=== PATIENT | male | born 1995 | race Native Hawaiian/Other Pacific Islander ===

== ENCOUNTER 2022-10-19 09:34 | Emergency (ER) | payer OTHER, SELFPAY ==
[2022-10-19 09:49] VITALS: BP 139/63; PULSE 72; RESP 18; TEMP 36.6; O2SAT 98; BMI 51.5
--- NOTE | 2022-10-19 10:16 | ED_ITS ---
HPI - Back Pain/Injury General Chief Complaint: Back Pain/Injury Stated Complaint: Lower back pain Time Seen by Provider: 10/19/22 09:57 Source: patient Mode of arrival: ambulatory Limitations: no limitations History of Present Illness HPI Narrative: 27-year-old male with a history of obesity who presents to the emergency room with complaints of lower back pain for the last 1 month with no known injury or trauma. Patient denies any radiation of pain. He denies any numbness in the groin, numbness/weakness/tingling in the lower extremities, incontinence of urine or stool, fever. 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 He has tried Tylenol but continues to feel pain. Patient reports pain is worsened at night time after long days of working and is worsened when he changes positions and moves. Patient has not been seen for this pain by any other facility or by a primary care. He does not currently have any primary care physician. Patient denies any known medical history but has not seen a primary care doctor in many years. Related Data Previous Rx's Medication Instructions Recorded cyclobenzaprine 10 mg tablet 10 mg PO TID PRN muscle spasm #15 10/19/22 tabs lidocaine 5 % topical patch 1 patch topical DAILY #30 ea 10/19/22 (Lidoderm) naproxen 500 mg tablet 500 mg PO BID PRN pain #30 tabs 10/19/22 Allergies Allergy/AdvReac Type Severity Reaction Status Date / Time No Known Allergies Allergy Unverified 06/07/20 17:33 Review of Systems Review of Systems: Yes all other systems are reviewed and are negative Constitutional: Constitutional: Reports no additional constitutional complaints, Denies body ache(s), Denies chills, Denies fever(s), Denies headache(s) and Denies weakness Eyes: Eyes: Reports no additional eye complaints and Denies change in vision ENT: Reports system reviewed and no additional complaints, except as documented, Denies dizziness, Denies headache(s), Denies nasal congestion, Denies nasal discharge and Denies neck pain Cardiovascular: Cardiovascular: Reports no additional cardiovascular complaints, Denies chest pain, Denies leg edema and Denies dyspnea Respiratory: Respiratory: Reports no additional respiratory complaints, Denies cough and Denies dyspnea Gastrointestinal: Gastrointestinal: Reports no additional gastrointestinal complaints, Denies abdominal pain, Denies diarrhea, Denies nausea and Denies vomiting Genitourinary: Genitourinary: Denies urinary incontinence Musculoskeletal: Musculoskeletal: Reports no additional musculoskeletal complaints, Reports back pain, Denies arthralgias, Denies joint swelling, Denies neck pain, Denies numbness and Denies tingling Integumentary/Breasts: Skin/Breast: Reports system reviewed and no additional complaints, except as docu and Denies rash Neurologic: Reports system reviewed and no additional complaints, except as documented, Denies Abnormal speech present, Denies dizziness, Denies headache(s), Denies numbness, Denies tingling and Denies weakness PMFSH Past Medical History Attestation statement: The following information was validated with the patient. Source: old records reviewed and nursing notes reviewed Social History Social History Advance Directives: No Advance Directives Information Provided: Yes Physical Exam Vital Signs: Vital Signs: Last Vital Signs Temp 98 F 10/19/22 09:49 Pulse 72 10/19/22 09:49 Resp 18 10/19/22 09:49 BP 139/63 10/19/22 09:49 Pulse Ox 98 10/19/22 09:49 O2 Del Method 10/19/22 09:49 BMI result Body Mass Index 51.5 Const: General: cooperative, healthy appearing, comfortable and no acute distress Orientation/consciousness: patient oriented x3 Limitations: no limitations HEENT: Head: Yes normal to inspection Ears: hearing grossly normal bilaterally General nose exam: Normal external nose present Face and sinus: Yes normal facial exam Mouth: Normal oral and palatal mucosa present Throat: Yes posterior oropharynx normal Eyes: General: appearance normal, both eyes and all related structures Pupils: Equal, round and reactive pupils present Neck: Neck: Yes normal visual inspection Chest: Chest palpation & inspection: normal inspection of the chest Resp: Effort & Inspection: normal respiratory effort Auscultation: clear to auscultation bilaterally Cardio: Rate: regular rate Rhythm: regular rhythm Peripheral pulses: Peripheral pulses 2+ throughout GI: Inspection: Yes normal to inspection Palpation (GI): Soft to palpation and nontender Auscultation: normal bowel sounds : General: Yes no CVA tenderness Back/Spine/Pelvis: Other: TTP over the lumbar spine and lumbar soft tissues bilaterally. No step offs or deformities. Pain worsened with flexion/extension of the spine. Back: no CVA tenderness Thoracic/Lumbar Spine: thoracic and lumbar spine normal to inspection Skin: General skin exam: no rashes or lesions noted Neuro: General: patient oriented x3, moves all extremities, no focal motor deficits and normal sensation to monofilament Cranial nerves: Yes CN's II-XII intact bilaterally, Yes Equal, round and reactive pupils present, Yes Bilaterally intact EOM present, Yes Nystagmus not present, Yes Normal facial strength present and Yes Midline tongue present Cognition (Neuro): normal cognition Speech: No Abnormal speech present Gait exam (Neuro): Normal gait present Motor exam (neuro): 5/5 motor strength present throughout Sensory Exam: Normal double simultaneous stimulation for sensation Deep tendon reflexes (DTR's): Right patellar reflex intensity grade: 2+ and Left patellar reflex intensity grade: 2+ Extrem: General: Yes normal to inspection Medical Decision Making Medical Decision Making MDM Narrative: 27-year-old male here with atraumatic lower back pain for the last 1 month with no neurological deficits or red flag symptoms. Patient was some tenderness over the lumbar spine and soft tissue with no midline tenderness, step-offs deformities. Pain is worsened with movement, flexion of the spine, after working long hours. Likely musculoskeletal. Patient will be started on NSAIDs, muscle relaxants, medicated patches with recommendations to establish a primary care doctor in follow-up. Did review worrisome signs and symptoms when to return to the emergency room. Comfortable plan for discharge home. Differential Diagnosis Differential Diagnoses: The differential diagnosis associated with the presentation includes Low concern for epidural abscess with no history of fever, immunocompromised state, IV drug abuse Low concern for cauda equina or cord compression with normal neurological exam, no red flag symptoms Low concern for fracture, renal colic, pyelonephritis, AAA Discharge Plan Discharge Clinical Impression: Strain of lumbar region Patient Disposition: Home, Self-Care Instructions: Low Back Strain (ED), Lower Back Exercises (ED) Additional Instructions: Heat or ice Gentle stretching No heavy lifting or bending Establish a primary care doctor as you will need to follow up with someone. You may also need physical therapy or additional imaging of your back which is ordered by a primary care doctor. Prescriptions: New naproxen 500 mg tablet 500 mg PO BID PRN (Reason: pain) Qty: 30 0RF cyclobenzaprine 10 mg tablet 10 mg PO TID PRN (Reason: muscle spasm) Qty: 15 0RF lidocaine [Lidoderm] 5 % adhesive patch,medicated 1 patch topical DAILY Qty: 30 0RF Rx Instructions: leave on most painful area for up to 12 hrs Referrals: Physician,None [Primary Care Provider] - Stand Alone Forms: Work/School Release Interventions: ED Discharge Assessment Last Done: 10/19/22 10:30 Discharge Date/Time: 10/19/22 10:25
== END 2022-10-19 10:25 | disposition home or self-care (01) ==
PROVIDERS: Emergency Provider Student in an Organized Health Care Education/Training Program
DX: M54.50 Low back pain, unspecified (principal); Z79.899 Other long term (current) drug therapy
CPT/HCPCS: 99283

== ENCOUNTER → 2023-03-17 10:48 | Outpatient (BNVA) | payer OTHER, SELFPAY | PROVIDERS: PCP Internal Medicine; Visit Provider Registered Nurse Emergency | DX: M53.3 Sacrococcygeal disorders, not elsewhere classified (principal); M54.9 Dorsalgia, unspecified; Z79.899 Other long term (current) drug therapy | CPT/HCPCS: 99202 ==

== ENCOUNTER 2023-04-20 16:00 | Outpatient (RCR) | payer OTHER, SELFPAY | END 2023-04-30 13:31 | disposition home or self-care (01) | LOC: HO.PT 16:00 | PROVIDERS: PCP Internal Medicine; Visit Provider Registered Nurse Emergency | DX: M53.3 Sacrococcygeal disorders, not elsewhere classified (principal) | CPT/HCPCS: 97110; 97161; 97530 ==

== ENCOUNTER 2023-08-17 12:37 | Emergency (ER) | payer OTHER, SELFPAY ==
[2023-08-17 12:58] VITALS: BP 151/86; PULSE 76; RESP 16; TEMP 36.7; O2SAT 98; BMI 57.0
--- NOTE | 2023-08-17 12:59 | ED.URI ---
HPI - URI/Sore Throat General Chief Complaint: Upper Respiratory Symptoms Stated Complaint: Sore throat Time Seen by Provider: 08/17/23 14:47 Source: patient Mode of arrival: ambulatory Limitations: no limitations History of Present Illness HPI Narrative: 28 yo male with no known medical history here with 1 week of cough, sore throat, fever. Patient reports his last fever was on Thursday and it was of 100.5. No chest pain, shortness of breath, diarrhea, vomiting ,abdominal pain, neck pain/stiffness, skin rash. Related Data Previous Rx's Medication Instructions Recorded lidocaine 5 % topical patch 1 patch topical DAILY #30 ea 10/19/22 (Lidoderm) naproxen 500 mg tablet 500 mg PO BID PRN pain #30 tabs 10/19/22 cyclobenzaprine 10 mg tablet 10 mg PO TID PRN muscle spasm 30 03/17/23 days #45 tabs Allergies Allergy/AdvReac Type Severity Reaction Status Date / Time No Known Allergies Allergy Verified 03/17/23 10:53 Review of Systems Review of Systems: Yes all other systems are reviewed and are negative Constitutional: Constitutional: Reports no additional constitutional complaints, Denies body ache(s), Denies chills, Reports fever(s), Denies headache(s) and Denies weakness Eyes: Eyes: Reports no additional eye complaints and Denies change in vision ENT: Reports system reviewed and no additional complaints, except as documented, Denies dizziness, Denies headache(s), Denies nasal congestion, Denies nasal discharge, Denies neck pain and Reports sore throat Cardiovascular: Cardiovascular: Reports no additional cardiovascular complaints, Denies chest pain, Denies leg edema and Denies dyspnea Respiratory: Respiratory: Reports no additional respiratory complaints, Reports cough and Denies dyspnea Gastrointestinal: Gastrointestinal: Reports no additional gastrointestinal complaints, Denies abdominal pain, Denies diarrhea, Denies nausea and Denies vomiting Genitourinary: Genitourinary: Denies urinary incontinence Musculoskeletal: Musculoskeletal: Reports no additional musculoskeletal complaints, Denies back pain, Denies arthralgias, Denies joint swelling, Denies neck pain, Denies numbness and Denies tingling Integumentary/Breasts: Skin/Breast: Reports system reviewed and no additional complaints, except as docu and Denies rash Neurologic: Reports system reviewed and no additional complaints, except as documented, Denies Abnormal speech present, Denies dizziness, Denies headache(s), Denies numbness, Denies tingling and Denies weakness PMF Past Medical History Attestation statement: The following information was validated with the patient. Source: old records reviewed and nursing notes reviewed Medical History Back pain Family History Family History Mother Diabetes Social History Alcohol intake: current Alcohol intake frequency: holidays/special occasions only Patient Tobacco Use Status: Never used Tobacco Physical Exam Vital Signs: Vital Signs: Last Vital Signs Temp 98.1 F 08/17/23 12:58 Pulse 76 08/17/23 12:58 Resp 16 08/17/23 12:58 BP 151/86 H 08/17/23 12:58 Pulse Ox 98 08/17/23 12:58 O2 Del Method Room Air 08/17/23 12:58 BMI result Body Mass Index 57.0 Const: General: cooperative, healthy appearing, comfortable and no acute distress Orientation/consciousness: patient oriented x3 Limitations: no limitations HEENT: Head: Yes normal to inspection Ears: hearing grossly normal bilaterally and TM's normal bilaterally General nose exam: Normal external nose present Face and sinus: Yes normal facial exam Mouth: Normal oral and palatal mucosa present Throat: Yes posterior oropharynx normal, Yes tonsils normal and Yes uvula midline Eyes: General: appearance normal, both eyes and all related structures Pupils: Equal, round and reactive pupils present Neck: Neck: Yes normal visual inspection, Yes full ROM, Yes no lymphadenopathy and Yes no meningeal signs Chest: Chest palpation & inspection: normal inspection of the chest Resp: Effort & Inspection: normal respiratory effort Auscultation: clear to auscultation bilaterally Cardio: Rate: regular rate Rhythm: regular rhythm Peripheral pulses: Peripheral pulses 2+ throughout GI: Inspection: Yes normal to inspection Palpation (GI): Soft to palpation and nontender Auscultation: normal bowel sounds Back/Spine/Pelvis: Thoracic/Lumbar Spine: thoracic and lumbar spine normal to inspection Skin: General skin exam: no rashes or lesions noted Neuro: General: patient oriented x3, no meningeal signs, no focal motor deficits and normal sensation to monofilament Cranial nerves: Yes Equal, round and reactive pupils present Cognition (Neuro): normal cognition Speech: No Abnormal speech present Gait exam (Neuro): Normal gait present Motor exam (neuro): 5/5 motor strength present throughout Extrem: General: Yes normal to inspection Course Course Course Narrative: This is a rapid medical exam. deferred additional HPI, ROS, PE to primary provider. 28 yo male with no known medical history here with 1 week of cough, sore throat, fever. Will obtain strep, flu/covid/rsv testing VSS Medical Decision Making Medical Decision Making MDM Narrative: 28 yo male with no known medical history here with 1 week of cough, sore throat, fever. Patient reports his last fever was on Thursday and it was of 100.5. No chest pain, shortness of breath, diarrhea, vomiting ,abdominal pain, neck pain/stiffness, skin rash. Exam is benign Will send testing for flu/COVID/RSV, strep Differential Diagnosis Differential Diagnoses: The differential diagnosis associated with the presentation includes Viral syndrome Influenza Strep pharyngitis AOM Admission/Observation Consideration of admission/observation: Escalation of care including admission/observation considered No hypoxia or tachypnea requiring supplemental oxygen, advanced imaging, further workup and/or admission Lab Data [facility] Lab Attestation statement: I reviewed the patient's lab results. Testing negative Labs: Lab Results 08/17/23 Range/Units 13:55 Influenza Type A (PCR) NEGATIVE (Negative) Influenza Type B (PCR) NEGATIVE (Negative) RSV RNA Qual (PCR) NEGATIVE (Negative) SARS-CoV-2 RNA (RT-PCR) NEGATIVE (Negative) S. pyogenes GrpA KATRIN Negative (Negative) Tests considered The following testing was considered but not selected: No hypoxia or tachypnea with clear lung sounds. No need for chest x-ray Prescription Management I considered prescription management with: Antiviral and Antibiotic Discharge Plan Discharge Clinical Impression: Viral infection Patient Disposition: Home, Self-Care Instructions: Viral Syndrome (ED) Additional Instructions: Testing for flu, covid, rsv are negative Testing for strep is negative Increase fluids, rest Motrin or tylenol for pain or fever as needed Prescriptions: No Action naproxen 500 mg tablet 500 mg PO BID PRN (Reason: pain) Qty: 30 0RF lidocaine [Lidoderm] 5 % adhesive patch,medicated 1 patch topical DAILY Qty: 30 0RF Rx Instructions: leave on most painful area for up to 12 hrs cyclobenzaprine 10 mg tablet 10 mg PO TID PRN (Reason: muscle spasm) 30 Days Qty: 45 0RF Referrals: Shanta Montalvo MD [Primary Care Provider] - 1 week
[2023-08-17 14:09] LABS: IDNOW Serial# 58CA691E; Strep A Nucleic Acid Negative (Negative)
[2023-08-17 14:39] LABS: Influenza A PCR NEGATIVE (Negative); Influenza B PCR NEGATIVE (Negative); Resp Syncy Virus RNA Qual PCR NEGATIVE (Negative); SARS COV2 PCR INHOUSE NEGATIVE (Negative)
== END 2023-08-17 14:57 | disposition home or self-care (01) ==
LOC: HO.ED 14:52
PROVIDERS: Nurse Practitioner Family; Emergency Provider Emergency Medicine; PCP Internal Medicine
DX: B34.9 Viral infection, unspecified (principal); J02.9 Acute pharyngitis, unspecified; R05.9 Cough, unspecified; Z20.822 Contact with and (suspected) exposure to COVID-19; Z20.828 Contact with and (suspected) exposure to other viral communicable diseases
CPT/HCPCS: 0241U; 87651; 99282; 99283

== ENCOUNTER 2024-01-06 09:09 | Emergency (ER) | payer SELFPAY ==
[2024-01-06 09:17] VITALS: BP 154/93; PULSE 69; RESP 18; TEMP 36.3; O2SAT 99; BMI 56.7
[2024-01-06 10:17] LABS: MANUAL DIFF FLAG NO
[2024-01-06 10:20] LABS: Appearance Urine Cloudy; Color Urine Yellow; Glucose Urine UA Negative (Negative); Leukocyte Esterase Urine Small (1+) (Negative); Nitrite Urine Negative (Negative); Specific Gravity - Urine 1.025 (1.005-1.025); UMIC TRIGGER UACC YES; Urine Blood Moderate (2+) (Negative); Urine Ketones Negative (Negative); Urine Protein Negative (Neg-Trace)
[2024-01-06 10:21] LABS: Basophils Absolute Auto 0.1 X10*3/uL (0.0-0.2); Basophils Percent Auto 1.1 % (0-2); Eosinophils Absolute Auto 0.2 X10*3/uL (0.0-0.4); Eosinophils Percent Auto 3.1 % (0-4); Hematocrit 46.4 % (42.0-52.0); Hemoglobin 15.4 g/dl (14.0-18.0); Imm Gran Abs Auto 0.05 X10*3/uL (0.00-0.03); Imm Gran Pct Auto 0.7 % (0.0-0.4); Lymphocytes Absolute Auto 2.3 X10*3/uL (1.2-4.9); Lymphocytes Percent Auto 32.3 % (20-40); Mean Corpuscular HGB Conc 33.2 g/dl (31.0-36.0); Mean Corpuscular Hemoglobin 30.3 pg (27.0-33.0); Mean Corpuscular Volume 91.3 fL (80.0-98.0); Mean Platelet Volume 10.5 fL (9.4-12.4); Monocytes Absolute Auto 0.7 X10*3/uL (0.1-1.2); Monocytes Percent Auto 9.4 % (2-11); Neutrophils Absolute Auto 3.7 x10*3/uL (2.0-8.3); Neutrophils Percent Auto 53.4 % (45-73); Platelet Count 268 X10*3/uL (160-400); Red Blood Count 5.08 X10*6/uL (4.60-5.80); Red Cell Distribution Width 12.9 % (11.0-16.0)
[2024-01-06 10:23] LABS: Bacteria Urine None Seen (None Seen); Hyaline Casts Urine 0-2 /LPF (0-2); RBC Urine >20 /HPF (0-2); UACC Culture Trigger YES
[2024-01-06 10:32] LABS: Alanine Aminotransferase 19 U/L (0-40); Albumin Level 3.8 g/dL (3.5-5.0); Alkaline Phosphatase 64 U/L (39-117); Anion Gap 8 (12-20); Aspartate Amino Transferase 19 U/L (5-37); Bilirubin Total 0.5 mg/dL (0.0-1.0); Blood Urea Nitrogen 15 mg/dL (9-16); Calcium 8.9 mg/dL (8.4-10.2); Carbon Dioxide 27 mmol/L (22-29); Chloride 108 mmol/L (96-108); Creatinine Clr Calc Pharmacy 218.8; Estimated Glomerular Filt Rate > 60; Glucose Random 98 mg/dL (60-115); Potassium 4.4 mmol/L (3.3-5.1); Sodium 139 mmol/L (135-145); Total Protein 7.9 g/dL (6.5-8.0)
--- NOTE | 2024-01-06 11:06 | ED.MALEGU ---
HPI - Male Genitourinary General Chief complaint: Urogenital-Male Stated complaint: blood in urine, sharp pain in lower back Time Seen by Provider: 01/06/24 10:59 Source: patient Mode of arrival: ambulatory Limitations: no limitations History of Present Illness HPI Narrative: 28 yo male with PMH of back pain and back injury here with 3 days of dysuria, hematuria and bilateral low back pain no fevers, n/v/d. No flank pain. No rectal pain no concern for STI, no rash or discharge. No hx of stones and no prior UTI MD Complaint: dysuria and other (hematuria) Onset (ago): day(s) (3) Duration: intermittent Location: penis Severity: mild Quality: burning Relieving factors: none Exacerbating factors: urination Associated symptoms: Reports blood in urine and dysuria Related Data Previous Rx's ?Medication ?Instructions ?Recorded lidocaine 5 % topical patch 1 patch topical DAILY #30 ea 10/19/22 (Lidoderm) naproxen 500 mg tablet 500 mg PO BID PRN pain #30 tabs 10/19/22 cyclobenzaprine 10 mg tablet 10 mg PO TID PRN muscle spasm 30 03/17/23 days #45 tabs levofloxacin 750 mg tablet 750 mg PO DAILY #7 tabs 01/06/24 Allergies Allergy/AdvReac Type Severity Reaction Status Date / Time No Known Allergies Allergy Verified 01/06/24 09:19 Review of Systems Review of Systems: Constitutional : No Weight loss, No Fever, No Chills, ENT/Mouth : No Hearing loss, No Ear Pain, No Nasal Congestion, No Sinus Pain, No Hoarseness, No sore throat, No Rhinorrhea, No Swallowing Difficulty Cardiovascular : No Chest Pain, No SOB Respiratory : No Cough, No Dyspnea Gastrointestinal : No Nausea, No Vomiting, No Diarrhea, No abdominal Pain, No Hematochezia, No Melena Genitourinary : pos Dysuria, No Urinary Frequency, pos Hematuria, No Urinary Incontinence, Musculoskeletal : positive back pain Skin : No Skin Lesions, No rash Neuro : No Weakness, No Numbness, No Paresthesias, no loss of bowel or bladder incontinence, no saddle anesthesia all other systems reviewed and are negative PMFSH Past Medical History Attestation statement: The following information was validated with the patient. Source: old records reviewed Medical History Back pain Family History Family History Mother Diabetes Social History Social History Alcohol intake: current Alcohol intake frequency: holidays/special occasions only Patient Tobacco Use Status: Never used Tobacco Advance Directives: No Physical Exam Vital Signs: Vital Signs: Last Vital Signs Temp 97.3 F 01/06/24 09:17 Pulse 69 01/06/24 09:17 Resp 18 01/06/24 09:17 BP 154/93 H 01/06/24 09:17 Pulse Ox 99 01/06/24 09:17 O2 Del Method Room Air 01/06/24 09:17 BMI result Body Mass Index 56.7 Appearance: Alert. Oriented X3. No acute distress. Eyes: Pupils equal, round and reactive to light. ENT: Pharynx normal. Neck: Normal inspection. Neck supple. CVS: Normal heart rate and rhythm. Pulses normal. Respiratory: No respiratory distress. Breath sounds normal. Abdomen: Soft and nontender. Back: no CVA ttp Skin: Skin warm and dry. Normal skin color. Normal skin turgor. Extremities: No lower extremity edema. No calf ttp Neuro: Oriented X 3. No motor deficit. No sensory deficit. Medical Decision Making Medical Decision Making MDM Narrative: 28 yo male with prior medical history of low back pain here with c/o hematuria and dysuria without n/v or fevers c/o mild low back pain not toxic appearing has no flank pain seems like cystitis on exam given age and hx will start on levofloxacin. He has no rectal pain to suggest prostatitis and no flank pain to suggest renal colic. Differential Diagnosis Differential Diagnoses: The differential diagnosis associated with the presentation includes acute uti no hx of stones has no flank pain doubt renal colic no rectal pain doubt prostatitis Admission/Observation Consideration of admission/observation: Escalation of care including admission/observation considered labs reassuring not toxic Lab Data [facility] Lab Attestation statement: I reviewed the patient's lab results. 01/06/24 10:12 01/06/24 10:12 Labs: Lab Results 01/06/24 Range/Units 10:12 WBC 7.0 (4.8-10.8) X10*3/uL RBC 5.08 (4.60-5.80) X10*6/uL Hgb 15.4 (14.0-18.0) g/dl Hct 46.4 (42.0-52.0) % MCV 91.3 (80.0-98.0) fL MCH 30.3 (27.0-33.0) pg MCHC 33.2 (31.0-36.0) g/dl RDW 12.9 (11.0-16.0) % Plt Count 268 (160-400) X10*3/uL MPV 10.5 (9.4-12.4) fL Immature Gran % (Auto) 0.7 H (0.0-0.4) % Neut % (Auto) 53.4 (45-73) % Lymph % (Auto) 32.3 (20-40) % [place] % (Auto) 9.4 (2-11) % Eos % (Auto) 3.1 (0-4) % Baso % (Auto) 1.1 (0-2) % Lymph # (Auto) 2.3 (1.2-4.9) X10*3/uL [place] # (Auto) 0.7 (0.1-1.2) X10*3/uL Eos # (Auto) 0.2 (0.0-0.4) X10*3/uL Baso # (Auto) 0.1 (0.0-0.2) X10*3/uL Abs Immat Gran (auto) 0.05 H (0.00-0.03) X10*3/uL Absolute Neuts (auto) 3.7 (2.0-8.3) x10*3/uL Absolute Nucleated RBC 0.000 (0.0-0.012) X10*3/uL Nucleated RBC % (auto) 0.0 (0.0-0.2) /100WBC Sodium 139 (135-145) mmol/L Potassium 4.4 (3.3-5.1) mmol/L Chloride 108 (96-108) mmol/L Carbon Dioxide 27 (22-29) mmol/L Anion Gap 8 L (12-20) BUN 15 (9-16) mg/dL Creatinine 0.87 (0.5-1.4) mg/dL Estim Creat Clear Calc 218.8 Estimated GFR > 60 Random Glucose 98 (60-115) mg/dL Calcium 8.9 (8.4-10.2) mg/dL Total Bilirubin 0.5 (0.0-1.0) mg/dL AST 19 (5-37) U/L ALT 19 (0-40) U/L Alkaline Phosphatase 64 (39-117) U/L Total Protein 7.9 (6.5-8.0) g/dL Albumin 3.8 (3.5-5.0) g/dL Urine Color Yellow Urine Appearance Cloudy Urine pH 6.0 (5.0-9.0) Ur Specific [place] 1.025 (1.005-1.025) Urine Protein Negative (Neg-Trace) mg/dL Urine Glucose (UA) Negative (Negative) mg/dL Urine Ketones Negative (Negative) mg/dL Urine Blood Moderate (2+) H (Negative) Urine Nitrite Negative (Negative) Ur Leukocyte Esterase Small (1+) H (Negative) Urine RBC >20 H (0-2) /HPF Urine WBC 11-20 H (0-5) /HPF Ur Squamous Epith Cells 6-10 (0-2) /HPF Urine Bacteria None Seen (None Seen) Hyaline Casts 0-2 (0-2) /LPF External Record Review External record reviewed: Office record Tests considered The following testing was considered but not selected: CT scan but no flank pain and no hx of stones doubt renal colic Prescription Management I considered prescription management with: Antibiotic Discharge Plan Discharge Clinical Impression: Acute cystitis Qualifiers: Hematuria presence: with hematuria Qualified Code(s): N30.01 - Acute cystitis with hematuria Patient Disposition: Home, Self-Care Instructions: Urinary Tract Infection in Men (ED) Additional Instructions: return for fevers, vomiting, severe pain no exercise or strenuous activity other than walking while on antibiotic Prescriptions: New levofloxacin 750 mg tablet 750 mg PO DAILY Qty: 7 0RF No Action naproxen 500 mg tablet 500 mg PO BID PRN (Reason: pain) Qty: 30 0RF lidocaine [Lidoderm] 5 % adhesive patch,medicated 1 patch topical DAILY Qty: 30 0RF Rx Instructions: leave on most painful area for up to 12 hrs cyclobenzaprine 10 mg tablet 10 mg PO TID PRN (Reason: muscle spasm) 30 Days Qty: 45 0RF Print Language: Croatian
[2024-01-06 11:29] VITALS: BP 151/92; PULSE 76; RESP 18; TEMP 36.6; O2SAT 96
== END 2024-01-06 11:30 | disposition home or self-care (01) ==
PROVIDERS: Emergency Provider Emergency Medicine
DX: N30.01 Acute cystitis with hematuria (principal); M54.50 Low back pain, unspecified; R30.0 Dysuria; Z79.899 Other long term (current) drug therapy
CPT/HCPCS: 36415; 80053; 81001; 85025; 87086; 99283; 99284

== ENCOUNTER 2025-08-07 10:54 | Emergency (ER) | payer SELFPAY ==
--- NOTE | ~2025-08-07 | CT_ITS ---
EXAMINATION: CT ANGIOGRAM HEAD AND NECK CLINICAL INFORMATION: Headache, rule out aneurysm. COMPARISON: Negative Noncontrast head CT earlier same day. TECHNIQUE: Test bolus sequences and head and neck intravenous bolus administration 70 mL of Omnipaque 350. Helical imaging was performed in the axial plane from the aortic arch to the skull vertex. The data was processed at the cytotechnologist supervisor's workstation for generation of MIP sequences. Angled MIPs and volume rendered reformatted images were also generated at an offline 3D workstation. Stenoses are assessed in accordance with NASCET criteria unless otherwise indicated. This CT examination was performed using dose optimization techniques as appropriate, variously including the following: *Automated exposure control *Adjustment of mA and/or kV according to patient size (this includes techniques or standardized protocols for targeted exams where dose is matched to indication/reason for exam; i.e. extremities or head) *Use of iterative reconstruction technique FINDINGS: Study somewhat limited by patient body habitus, resulting in significant beam starvation artifact, particularly in the upper thorax and lower neck. NECK CTA: -AORTIC ARCH: Normal in caliber. No significant atheromatous calcification. 2 vessel branching pattern. -GREAT VESSEL ORIGINS: Widely patent. No stenosis. -RIGHT COMMON CAROTID ARTERY: Origin obscured by streak artifact. Otherwise normal in course and caliber to the level of the bifurcation. -CERVICAL RIGHT INTERNAL CAROTID ARTERY: Partial retropharyngeal course. Normal in caliber. No narrowing. -LEFT COMMON CAROTID ARTERY: Normal in course and caliber to the level of the bifurcation. -CERVICAL LEFT INTERNAL CAROTID ARTERY: Partial retropharyngeal course. Normal in caliber. No narrowing. -CERVICAL RIGHT VERTEBRAL ARTERY: Mildly dominant. Normal in course and caliber into the skull base. -CERVICAL LEFT VERTEBRAL ARTERY: Mildly nondominant. Normal in course and caliber into the skull base. OTHER, SOFT TISSUES: -Limited by patient body habitus. -No lymphadenopathy or mass. No abnormal fluid collection or soft tissue swelling. -Normal thyroid. -Imaged superior mediastinal structures normal. -Imaged lung apices limited by streak artifact from habitus. Grossly clear. -Prominent adenoids and tonsillar pillar soft tissues, consistent with reactive etiology. -Fatty change of the parotid glands. CTA OF THE BRAIN: -INTRACRANIAL INTERNAL CAROTID ARTERIES: No focal stenosis or occlusion. Normal ophthalmic artery origins. -RIGHT ANTERIOR CEREBRAL ARTERY: Normal A1 segment. Normal arborization of the distal segments. -LEFT ANTERIOR CEREBRAL ARTERY: Normal A1 segment. Normal arborization of the distal segments. -ANTERIOR COMMUNICATING ARTERY: Normal. -RIGHT MIDDLE CEREBRAL ARTERY: Normal M1 segment of the MCA without focal stenosis or occlusion. Normal bifurcation. Normal arborization of the distal segments. -LEFT MIDDLE CEREBRAL ARTERY: Normal M1 segment of the MCA without focal stenosis or occlusion. Normal bifurcation. Normal arborization of the distal segments. -RIGHT VERTEBRAL ARTERY V4: Normal in course and caliber. -LEFT VERTEBRAL ARTERY V4: Normal in course and caliber. -BASILAR ARTERY: Normal without focal stenosis or occlusion. Normal appearance of the proximal superior cerebellar arteries. Normal basilar tip. -RIGHT POSTERIOR CEREBRAL ARTERY: Normal P1 segment. Normal opacification of the distal PITCH[place] segments. -LEFT POSTERIOR CEREBRAL ARTERY: Normal P1 segment. Normal opacification of the distal [place] segments. -POSTERIOR COMMUNICATING ARTERIES: Bilaterally small but patent. Normal opacification of the superior sagittal, straight, transverse, and sigmoid sinuses. No venous thrombosis. No space-occupying hemorrhage or definite evolving infarct. CT/CT angio head neck IMPRESSION: Examinations limited due to patient body habitus and associated beam starvation artifact. CTA NECK: 1. No evidence of significant stenosis, occlusion, aneurysm, or dissection of the major cervical arterial vasculature. CTA HEAD: 1. No evidence of significant stenosis, occlusion, aneurysm, or dissection of the major intracranial arterial vasculature. 2. Major cortical and dural venous sinuses are patent. 3. No space-occupying hemorrhage or definite evolving infarct. Electronically signed by: Vernon Hurtado MD 08/07/2025 04:56 PM EST
--- NOTE | ~2025-08-07 | CT_ITS ---
EXAMINATION: CT HEAD WITHOUT CONTRAST CLINICAL INFORMATION: Left-sided headache 2 weeks COMPARISON: None available. TECHNIQUE: Contiguous axial imaging was performed from the skull base to vertex without intravenous administration of contrast. This CT examination was performed using dose optimization techniques as appropriate, variously including the following: *Automated exposure control *Adjustment of mA and/or kV according to patient size (this includes techniques or standardized protocols for targeted exams where dose is matched to indication/reason for exam; i.e. extremities or head) *Use of iterative reconstruction technique FINDINGS: There is no evidence of acute intracranial hemorrhage or edematous large vessel territorial infarction. No abnormal mass effect or midline shift is seen. Barron to white matter differentiation is well preserved. No abnormal extra-axial fluid collections are identified. The ventricles are normal in size. No abnormal attenuation in the brain parenchyma. No acute calvarial fracture.. Paranasal sinuses and mastoid air cells are well-aerated. CT/CT head/brain wo IV con IMPRESSION: No CT evidence of acute intracranial hemorrhage or edematous territorial infarction.. Cause of the patient's symptoms has not been determined. Further/follow-up imaging as clinically indicated. Electronically signed by: Alejo Maynard MD 08/07/2025 12:13 PM [facility]
[2025-08-07 11:24] VITALS: BP 154/86; PULSE 70; RESP 18; TEMP 36.4; O2SAT 96; BMI 55.4
--- NOTE | 2025-08-07 11:28 | ED_ITS ---
HPI - General Adult General Chief complaint: General Medical Stated complaint: Eye Issues Irritation Time Seen by Provider: 08/07/25 13:35 Source: patient Mode of arrival: ambulatory Limitations: no limitations History of Present Illness ED Provider: DR. Morgan HPI narrative: 30-year-old male otherwise healthy came in for evaluation of left-sided head pain started 2 weeks ago, headache is fluctuating up and down during the day when he wakes up in the morning the headache is mild as the day wears on headache gets worse mostly behind his left eye and sometimes over left temporal area, no photophobia, otherwise no blurry vision.no neck stiffness, no fever, no chills, history of similar pain before. Related Data Previous Rx's ?Medication ?Instructions ?Recorded lidocaine 5 % topical patch 1 patch topical DAILY #30 ea 10/19/22 (Lidoderm) naproxen 500 mg tablet 500 mg PO BID PRN pain #30 t abs 10/19/22 cyclobenzaprine 10 mg tablet 10 mg PO TID PRN muscle s pasm 30 03/17/23 days #45 tabs levofloxacin 750 mg tablet 750 mg PO DAILY #7 tabs Allergies Allergy/AdvReac Type Severity Reaction Status Date / Time No Known Allergies Allergy Verified 08/07/25 11:25 Review of Systems 2 Review of Systems: All other systems are reviewed and are negative Constitutional: Reports as per HPI and Reports no additional constitutional complaints Eyes: Reports as per HPI and Reports no additional eye complaints Reports system reviewed and no additional complaints, except as documented Cardiovascular: Reports as per HPI and Reports no additional cardiovascular complaints Respiratory: Reports as per HPI and Reports no additional respiratory complaints Gastrointestinal: Reports as per HPI and Reports no additional gastrointestinal complaints Genitourinary: Reports no additional female genitourinary complaints Musculoskeletal: Reports no additional musculoskeletal complaints Skin/Breast: Reports system reviewed and no additional complaints, except as docu Psychiatric: Reports no additional psychiatric complaints Endocrine: Reports no additional endocrine complaints Hematologic/Lymphatic: Reports no additional hematologic/lymphatic complaints Allergic/Immunologic: Reports no additional allergic/immunologic complaints Reports system reviewed and no additional complaints, except as documented and Reports Abnormal speech present [facility] Past Medical History Medical History Back pain Family History Family History Mother Diabetes Social History Social History Alcohol intake: current Alcohol intake frequency: holidays/special occasions only Patient Tobacco Use Status: Never used Tobacco Smoked in Last 30 Days: No Use of substances other than those prescribed or required for medical reasons: No Advance Directives: No Advance Directives Information Provided: No Do you have a plan to hurt others: No Plan Physical Exam ED Vital Signs: Vital Signs - 24 hr 08/07/25 11:24 08/07/25 13:34 08/07/25 17:27 Temperature 97.5 F 97.8 F 97.8 F Pulse Rate 70 72 59 Respiratory Rate 18 13 18 Blood Pressure 154/86 H 146/91 H 133/73 Pulse Oximetry 96 97 99 Oxygen Delivery Method Room Air Room Air Room Air BMI result Body Mass Index 55.4 Vital signs have been reviewed and appear to be correct. Blood pressure elevated. Heart rate normal. Respiratory rate normal. Temperature normal. Oxygen saturation normal. Appearance: Alert. Oriented X3. No acute distress. Head: Normal external exam. Normocephalic. Atraumatic. No Castañeda signs noted. No raccoon eyes noted Eyes: VA right 20/30 left 20/50 bilateral 20/30. General: appearance normal, both eyes and all related structures Visual Long: normal visual long by confrontation Alignment and Position: alignment normal and position normal Periorbital: periorbital findings normal Eyelids: Yes eyelids normal Conjunctivae: conjunctivae normal Sclerae: sclerae normal Corneas: corneas normal Pupils: Equal, round and reactive pupils present and Pupil accommodation reflex normal EOM: EOM abnormal (Limited abduction of right eye) and No Nystagmus present Direct Ophthalmoscopy: normal light reflex, no photophobia, no papilledema and fundi normal bilaterally . IOP left 12 mmHg right is 14 mmHg. ENT: TM's Normal. Pharynx normal. Uvula midline. Moist mucous membranes. No trismus noted. No drooling noted. No muffled voice noted. Neck: Normal inspection. Neck supple. FROM. No adenopathy. Thyroid Normal. No meningeal signs. No neck mass noted. CVS: Normal heart rate and rhythm. Heart sound normal. No murmurs noted. Pulses normal throughout. Respiratory: No respiratory distress. Painless inspiration. Breath sounds normal. No wheezes/rales/rhonchi noted. Chest nontender. No accessory muscle usage noted or decreased air movement noted. Abdomen: Soft and nontender. Bowel sounds normal in all 4 quadrants. No distention noted. No organomegaly noted. No visible injury noted. Back: No CVA tenderness. Full range of motion noted. Skin: Skin warm and dry. Normal skin color. Normal skin turgor. No rashes/lesions/lacerations noted. Extremities: No lower extremity edema. Extremities exhibit normal range of motion. Extremities nontender. Neuro: Mental status: Normal attention, orientation, memory, and affect. Cranial nerves: Pupils are equal, round and reactive to light, EOMI, visual long are fall, face is symmetric, facial sensations are normal. Motor examination normal muscle tone, strength to 4 extremities. DTR are +2, planter's are flexor. Sensory exam; normal coordination, no ataxia, gait stable. Cerebellar exam: Bfvqzk-vm-gjvd and bhjk-fd-[id number] is normal. Extrapyramidal system: No tremors, no rigidity with normal facial expressions. Pronator drift not present Course Course Course Narrative: RME: 30 year male presents to the ED for pain pressure behind left eye and frontal side of head for the past 2-1/2 weeks without any trauma or change in vision. Patient denies any nausea or vomiting. CT scan COVID and influenza swabs ordered. Patient did have eye exam in the ED Reevaluation(s) Reevaluation #1: 30-year-old male came in for evaluation of headache and left eye pain and left temporal pain. No history of similar presentation. Inflammatory marker are slightly elevated, CT angio of the head is unremarkable for intracerebral aneurysm which rule out subarachnoid hemorrhage. Patient was instructed to follow-up with his eye doctor follow-up. And control with eopv-ios-wevnnjc ibuprofen or Tylenol. Time: 16:00 Medications Administered Discontinued Medications Generic Name Dose Route Start Last Admin Trade Name Freq PRN Reason Stop Dose Admin Iohexol 100 ml 08/07/25 16:28 08/07/25 16:28 Iohexol 350 Mg/Ml 100 Ml Infus..Btl IV 08/07/25 16:29 85 ml ONCE ONE Administration Medical Decision Making Differential Diagnosis Differential Diagnoses: The differential diagnosis associated with the presentation includes ( closed angle glaucoma, temporal arteritis, intracranial bleed, cerebral aneurysm,) Admission/Observation Consideration of admission/observation: Escalation of care including admission/observation considered Lab Data MDM Lab Attestation statement: I reviewed the patient's lab results. 08/07/25 14:25 08/07/25 14:25 Labs: Lab Results 08/07/25 08/07/25 Range/Units 11:51 14:25 WBC 8.7 (4.8-10.8) X10*3/uL RBC 5.31 (4.60-5.80) X10*6/uL Hgb 16.0 (14.0-18.0) g/dl Hct 49.0 (42.0-52.0) % MCV 92.3 (80.0-98.0) fL MCH 30.1 (27.0-33.0) pg MCHC 32.7 (31.0-36.0) g/dl RDW 13.0 (11.0-16.0) % Plt Count 310 (160-400) X10*3/uL MPV 10.9 (9.4-12.4) fL Immature Gran % (Auto) 0.3 (0.0-0.4) % Neut % (Auto) 67.9 (45-73) % Lymph % (Auto) 22.6 (20-40) % [place] % (Auto) 7.8 (2-11) % Eos % (Auto) 0.6 (0-4) % Baso % (Auto) 0.8 (0-2) % Lymph # (Auto) 2.0 (1.2-4.9) X10*3/uL [place] # (Auto) 0.7 (0.1-1.2) X10*3/uL Eos # (Auto) 0.1 (0.0-0.4) X10*3/uL Baso # (Auto) 0.1 (0.0-0.2) X10*3/uL Abs Immat Gran (auto) 0.03 (0.00-0.03) X10*3/uL Absolute Neuts (auto) 5.9 (2.0-8.3) x10*3/uL Absolute Nucleated RBC 0.000 (0.0-0.012) X10*3/uL Nucleated RBC % (auto) 0.0 (0.0-0.2) /100WBC ESR 20 H (0-15) MM/HR Sodium 139 (135-145) mmol/L Potassium 4.5 (3.3-5.1) mmol/L Chloride 109 H (96-108) mmol/L Carbon Dioxide 26 (22-29) mmol/L Anion Gap 9 L (12-20) BUN 12 (9-16) mg/dL Creatinine 0.85 (0.5-1.4) mg/dL Estim Creat Clear Calc 223.1 Estimated GFR > 60 Random Glucose 93 (60-115) mg/dL Calcium 9.2 (8.4-10.2) mg/dL C-Reactive Protein 1.12 H (< or = 0.50) mg/dL COVID-19 (TROY) Negative (Negative) COVID-19 Clin Com See Note Influenza Type A (KATRIN) Negative (Negative) Influenza Type B (KATRIN) Negative (Negative) Influenza A & B Note See Note Independent Interpretation I performed an independent interpretation of an: CT Scan ( head/CT angio head and neck: No acute pathology. CT angio:Examinations limited due to patient body habitus and associated beam starvation artifact. CTA NECK: 1. No evidence of significant stenosis, occlusion, aneurysm, or dissection of the major cervical arterial vasculature. CTA HEAD: 1. No) Radiology Impression Discussion of test interpretation with radiology: I have reviewed the radiologist's reading. Discharge Plan Discharge Clinical Impression: Headache Patient Disposition: Home, Self-Care Instructions: Acute Headache (ED) Prescriptions: No Action naproxen 500 mg tablet 500 mg PO BID PRN (Reason: pain) Qty: 30 0RF lidocaine [Lidoderm] 5 % adhesive patch,medicated 1 patch topical DAILY Qty: 30 0RF Rx Instructions: leave on most painful area for up to 12 hrs levofloxacin 750 mg tablet 750 mg PO DAILY Qty: 7 0RF cyclobenzaprine 10 mg tablet 10 mg PO TID PRN (Reason: muscle spasm) 30 Days Qty: 45 0RF Referrals: Rush Maher [Physician, Ophthalmology] Interventions: ED Discharge Assessment Last Done: 08/07/25 17:27 Discharge Date/Time: 08/07/25 17:32 Print Language: Latvian
[2025-08-07 12:12] LABS: COVID-19 Test Negative (Negative); IDNOW Serial# 6674DD1D
[2025-08-07 12:22] LABS: IDNOW Serial# 08D9AD1C; Influenza B2 Negative (Negative)
[2025-08-07 13:34] VITALS: BP 146/91; PULSE 72; RESP 13; TEMP 36.6; O2SAT 97
[2025-08-07 14:27] LABS: MANUAL DIFF FLAG NO
[2025-08-07 14:31] LABS: Hematocrit 49.0 % (42.0-52.0); Hemoglobin 16.0 g/dl (14.0-18.0); Imm Gran Abs Auto 0.03 X10*3/uL (0.00-0.03); Imm Gran Pct Auto 0.3 % (0.0-0.4); Lymphocytes Absolute Auto 2.0 X10*3/uL (1.2-4.9); Mean Corpuscular HGB Conc 32.7 g/dl (31.0-36.0); Mean Corpuscular Hemoglobin 30.1 pg (27.0-33.0); Mean Corpuscular Volume 92.3 fL (80.0-98.0); NRBC Abs Auto 0.000 X10*3/uL (0.0-0.012); NRBC Pct Auto 0.0 /100WBC (0.0-0.2); Platelet Count 310 X10*3/uL (160-400); Red Blood Count 5.31 X10*6/uL (4.60-5.80); White Blood Count 8.7 X10*3/uL (4.8-10.8)
--- NOTE | 2025-08-07 14:33 | PC.NURSE ---
20gIV placed to the right AC - labs obtained/sent to lab. pt waiting for CT to be completed at this time. plan of care ongoing.
[2025-08-07 14:43] LABS: Anion Gap 9 (12-20); Blood Urea Nitrogen 12 mg/dL (9-16); Calcium 9.2 mg/dL (8.4-10.2); Carbon Dioxide 26 mmol/L (22-29); Chloride 109 mmol/L (96-108); Creatinine Clr Calc Pharmacy 223.1; Estimated Glomerular Filt Rate > 60; Potassium 4.5 mmol/L (3.3-5.1); Sodium 139 mmol/L (135-145)
[2025-08-07 15:11] LABS: Erythrocyte Sedimentation Rate 20 MM/HR (0-15)
[2025-08-07] MEDS: iohexoL 350 MG/ML 100 ML INFUS..BTL IV (16:28)
[2025-08-07 17:27] VITALS: BP 133/73; PULSE 59; RESP 18; TEMP 36.6; O2SAT 99
--- OUTSIDE RECORDS SUMMARY | 2025-08-08 02:45 | XMS_ITS | Clinical Summary ---
Author Organization [facility] ity Address [address] [place] [address] Care Team Providers Care Security Representative Name Role Phone Shanta Montalvo MD Primary Care Provider [phone] Allergies No known active allergies Medications acetaminophen (TYLENOL) 500 mg tablet Take 1 tablet (500 mg total) by mouth every 6 (six) hours if needed. Active cyclobenzaprine (FLEXERIL) 10 mg tablet Take 1 Tablet by mouth at bedtime as needed for Muscle spasms for up to 15 days. 02/18/2023 Active naproxen (NAPROSYN) 500 mg tablet Take 1 Tablet by mouth 2 times daily (with meals) for 90 days. 02/18/2023 Active Social History Tobacco Use Types Packs/Day Years Used Date Smoking Tobacco: Never Smokeless Tobacco: Never Alcohol Use Standard Drinks/Week Comments Yes 0 (1 standard drink = 0.6 oz pur e alcohol) Sex and Gender Information Value Date Recorded Sex Assigned at Not on file Legal Sex Male 12:21 AM EST Gender Identity Not on file Sexual Orientation Not on file Obstetrics History Last Filed Vital Signs Vital Sign Reading Time Taken Comments Blood Pressure 118/62 02/18/2023 10:23 AM EDT Pulse 76 02/18/2023 10:23 AM EDT Temperature - - Respiratory Rate - - Oxygen Saturation - - Inhaled Oxygen Concentration - - Weight 191 kg (422 lb) 02/18/2023 10:23 AM EDT Height 182.9 cm (6') 02/18/2023 10:23 AM EDT Body Mass Index 57.23 02/18/2023 10:23 AM EDT Plan of Treatment Health Maintenance Due Date Last Done Comments DTaP,Tdap,and Td Vaccines (1 - Tdap) 2014 Hepatitis B Vaccines (1 of 3 - 19+ 3-dose series) 2014 HPV Vaccines (1 - 3-dose SCD M series) 2022 HIV Screening 10/20/2023 Hepatitis C Screening 10/20/2023 Social Influencers of Health Screening 10/20/2023 Depression Screening 09/21/2024 COVID-19 Vaccine (2 - 2024-2 6 season) 2025 10/15/2021 Influenza Vaccine (#1) 2025 Cholesterol Screening (Lipid Panel) 02/19/2028 02/18/2023 RSV Immunization Adult Patie nts (1 - 1-dose 75+ series) 2070 HIB Vaccines Aged Out No longer eligi ble based on patient's age to complete this topic Hepatitis A Vaccines Aged Out No long er eligible based on patient's age to complete this topic IPV Vaccines Aged Out No longer eligi ble based on patient's age to complete this topic MMR Vaccines Aged Out No longer eligi ble based on patient's age to complete this topic Meningococcal ACWY Vaccine Aged Out N o longer eligible based on patient's age to complete this topic Meningococcal B Vaccine Aged Out No l onger eligible based on patient's age to complete this topic Pneumococcal Vaccine: Pediat rics (0 to 5 Years) and At-Risk Patients (6 to 49 Years) Aged Out No longer eligi ble based on patient's age to complete this topic RSV Immunization Patients Un crystal 20 months Aged Out No longer eligible b ased on patient's age to complete this topic Varicella Vaccines Aged Out No longer eligible based on patient's age to complete this topic Procedures Procedure Name Priority Date/Time Associated Diagnosis Comments LIPID PANEL Routine 02/18/2023 from Last 3 Months or Most Recently Relevant to Health Maintenance Results * Lipid panel (02/18/2023) LDL/HDL Ratio 4 0 - 4 Triglycerides 99 0 - 150 mg/dL Cholesterol 162 0 - 200 mg/dL HDL 43 >=40 mg/dL LDL Cholesterol 100 0 - 100 mg/dL Blood Venous blood specimen / Unknown Historical Provider LAB BLOOD ORDERABLES Silva l Result from Last 3 Months or Most Recently Relevant to Health Maintenance Care Teams Security Representative Relationship Specialty Start Date End Date Shanta Montalvo MD PCP - General 01/29/23
== END 2025-08-07 17:32 | disposition home or self-care (01) ==
PROVIDERS: Physician Assistant; Emergency Provider Emergency Medicine
DX: R51.9 Headache, unspecified (principal); H57.12 Ocular pain, left eye; Z11.52 Encounter for screening for COVID-19; Z79.899 Other long term (current) drug therapy
CPT/HCPCS: 36415; 70450; 70496; 70498; 80048; 85025; 85652; 86140; 87502; 87635; 99284; Q9967

== ENCOUNTER → 2025-08-07 11:27 | Outpatient (BNV) | payer SELFPAY | PROVIDERS: Visit Provider Radiology Diagnostic Ultrasound | DX: R51.9 Headache, unspecified (principal) | CPT/HCPCS: 70450; 70496; 70498 ==